=== PATIENT | male | born 1970 | race Caucasian/White ===

== ENCOUNTER 2016-07-01 21:47 | Observation (INO) | payer OTHER ==
[2016-07-02] MEDS ORDERED: ASPIRIN 325 MG TABLET PO ONE (00:29)
--- NOTE | 2016-07-02 00:29 | ER Document Report ---
ED General - General Chief Complaint: Breathing Difficulty Stated Complaint: DIFFICULTY BREATHING Notes: Patient is a 45-year-old male who presents with complaint of sudden onset of aching pain in his left shoulder that occurred with diaphoresis and difficulty breathing. Symptoms lasted approximately 2 hours. He's never had this before. No recent trauma or injuries to shoulder. Pain is not made worse with any type of movement or mobility. No family history of cardiac disease. Patient has no personal history of cardiac disease. He has a history of cervical spine surgery one year ago. He says the pain he had tonight was nothing like anything related to his previous cervical spine pain. He was not doing anything when the pain and shortness of breath came on. TRAVEL OUTSIDE OF THE [place] IN LAST 30 DAYS: No - Related Data Allergies/Adverse Reactions: No Known Allergies Allergy (Verified 08/09/13 18:35) Past Medical History - Social History Smoking Status: Never Smoker Frequency of alcohol use: None Drug Abuse: None Family History: Reviewed & Not Pertinent Patient has suicidal ideation: No Patient has homicidal ideation: No - Past Medical History Cardiac Medical History: Reports: Hx Hypercholesterolemia - controlled with diet Renal/ Medical History: Reports: Hx Kidney Stones. Denies: Hx Peritoneal Dialysis Musculoskeltal Medical History: Reports Hx Arthritis Past Surgical History: Reports: Hx Orthopedic Surgery - 2008 C5 and C6 fusion, 2016 C 5 - C7 fusion - Immunizations Hx Diphtheria, Pertussis, Tetanus Vaccination: No Review of Systems - Review of Systems Notes: My Normal Review Basic REVIEW OF SYSTEMS: CONSTITUTIONAL : Denies fever, chills, or sweats. Denies recent illness. EENT: Denies eye, ear, throat, or mouth pain or symptoms. Denies nasal or sinus congestion. CARDIOVASCULAR: Left shoulder pain RESPIRATORY: Difficulty breathing GASTROINTESTINAL: Denies abdominal pain. Denies nausea, vomiting, or diarrhea. Denies constipation. Last BM: : MUSCULOSKELETAL: Left shoulder pain SKIN: Denies rash or skin lesions. NEUROLOGICAL: Denies altered mental status or loss of consciousness. Denies headache. Denies weakness or paralysis or loss of use of either side. Denies problems with gait or speech. Denies sensory or motor loss. ALL OTHER SYSTEMS REVIEWED AND NEGATIVE. Physical Exam - Notes Notes: General Appearance: Well nourished, alert, cooperative, no acute distress, no obvious discomfort. Well-appearing. Vitals: reviewed, See vital signs table. Head: no swelling or tenderness to the head Eyes: PERRL, EOMI, Conjuctiva clear Mouth: No decreasd moisture Neck: Supple, no neck tenderness, No thyromegaly Lungs: No wheezing, No rales, No rhonci, No accessory muscle use, good air exchange bilaterally. Heart: Normal rate, Regular rythm, No murmur, no rub Abdomen: Normal BS, soft, No rigidity, No abdominal tenderness, No guarding, no rebound, no abdominal masses, no organomegaly Extremities: strength 5/5 in all extremities, good pulses in all extremities, no swelling or tenderness in the extremities, no edema. No reproduction of any pain with plates in his left shoulder through full range of motion. Skin: warm, dry, appropriate color, no rash Neuro: speech clear, oriented x 3, normal affect, responds appropriately to questions. Course - Laboratory Result Diagrams: 07/02/16 00:36 07/02/16 00:36 Laboratory results interpreted by me: 07/02/16 00:36 RDW 15.0 H - EKG Interpretation by Me Additional EKG results interpreted by me: 07/02/16 00:27 EKG is reviewed and interpreted by me. EKG shows normal sinus rhythm with rate of [address] segment elevation or depression. No ischemic T wave inversions. SD level, QRS duration, QTC intervals are within normal range. No old EKG available for comparison. - Transfer of Care Notes: 07/02/16 01:57 Patient's EKG and cardiac enzymes are negative. I am concerned episode he had being that he had severe pain in his left upper chest and shoulder with diaphoresis, sweating, shortness of breath lasted 2 hours ago. I do not have another reason for this other than possible anginal equivalent at this time. I' ve given him aspirin. He's currently free. I spoke with the hospitalist who agrees to admit the patient. Dictation of this chart was performed using voice recognition software; therefore, there may be some unintended grammatical errors. Discharge - Discharge Clinical Impression: Chest pain Qualifiers: Chest pain type: unspecified Qualified Code(s): R07.9 - Chest pain, unspecified Dyspnea Qualifiers: Dyspnea type: unspecified Qualified Code(s): R06.00 - Dyspnea, unspecified Condition: Stable Disposition: ADMITTED OBSERVATION Admitting Provider: Hospitalist Unit Admitted: Telemetry
[2016-07-02 00:57] LABS: ABSOLUTE BASOPHILS # (AUTO) 0.1 10^3/uL (0.0-0.2); ABSOLUTE EOSINOPHILS # (AUTO) 0.3 10^3/uL (0.0-0.6); ABSOLUTE LYMPHOCYTES (AUTO) 2.4 10^3/uL (0.5-4.7); ABSOLUTE MONOCYTES (AUTO) 0.7 10^3/uL (0.1-1.4); ABSOLUTE NEUT (AUTO) 4.3 10^3/uL (1.7-8.2); BASOPHILS % (AUTO) 0.8 % (0-2); EOSINOPHILS % (AUTO) 3.3 % (0-6); HEMATOCRIT 42.2 % (37.9-51.0); HEMOGLOBIN 14.3 g/dL (13.5-17.0); HGB HCT DIFFERENCE 0.7; LYMPHOCYTES % (AUTO) 31.6 % (13-45); MEAN CORPUSCULAR HEMOGLOBIN 31.3 pg (27.0-33.4); MEAN CORPUSCULAR VOLUME 92 fl (80-97); MONOCYTES % (AUTO) 9.1 % (3-13); RED BLOOD COUNT 4.58 10^6/uL (4.35-5.55); SEGMENTED NEUTROPHILS % (AUTO) 55.2 % (42-78); WHITE BLOOD COUNT 7.7 10^3/uL (4.0-10.5)
[2016-07-02 00:58] LABS: ALANINE AMINOTRANSFERASE 32 U/L (21-72); ALBUMIN 4.3 g/dL (3.5-5.0); ALKALINE PHOSPHATASE 99 U/L (38-126); ANION GAP 14 (5-19); ASPARTATE AMINO TRANSFERASE 24 U/L (17-59); BILIRUBIN,DIRECT 0.1 mg/dL (0.0-0.4); BILIRUBIN,TOTAL 0.3 mg/dL (0.2-1.3); BLOOD UREA NITROGEN 12 mg/dL (7-20); CARBON DIOXIDE 25 mmol/L (22-30); CHLORIDE 105 mmol/L (98-107); CREATINE KINASE 170 U/L (55-170); CREATININE RESULT 0.89 mg/dL (0.52-1.25); GLUCOSE 101 mg/dL (75-110); POTASSIUM 4.1 mmol/L (3.6-5.0); SODIUM 143.9 mmol/L (137-145); TOTAL PROTEIN 7.4 g/dL (6.3-8.2)
[2016-07-02 01:13] LABS: CREATINE KINASE MB 0.97 ng/mL (<4.55)
[2016-07-02 01:14] LABS: TROPONIN I < 0.012 ng/mL
[2016-07-02] MEDS ORDERED: NITROGLYCERIN 0.4 MG/TAB 25 TAB/BOTTLE SL PRN (02:19)
[2016-07-02] MEDS ORDERED: HYDRALAZINE HCL INJ/PF 20 MG/1 ML SDV IV PRN (02:20)
[2016-07-02 03:48] VITALS: BP 132/80
[2016-07-02] MEDS ORDERED: BUTALB/ACETAMINOPHEN/CAFFEINE 1 TAB EACH PO PRN (04:14)
--- NOTE | 2016-07-02 04:35 | PDOC H&P ---
History of Present Illness Admission Date/PCP: 07/02/16 02:19 GAUDENCIO STEWART MD Patient complains of: Left shoulder and arm pain History of Present Illness: ASHLI AQUINO is a 45 year old male with a past medical history of rheumatoid arthritis who had been in his usual state of health until approximately 2 hours prior to presentation having an acute and abrupt onset of right shoulder pain which radiated to the arm was dull and steady in nature associated with shortness of breath and diaphoresis. Denying previous episode denying alleviating or exacerbating factors, recent injury or change in medications. His workup is unremarkable he is referred to the hospitalist for observation. Past Medical History Cardiac Medical History: Reports: Hyperlipidema - controlled with diet Musculoskeltal Medical History: Reports: Arthritis, Other - Chronic cervical back pain Psychiatric Medical History: Denies: Depression Past Surgical History Past Surgical History: Reports: Orthopedic Surgery - 2007 C5 and C6 fusion, 2015 C 5 - C7 fusion Social History Information Source: Patient Lives with: Family Smoking Status: Never Smoker Frequency of Alcohol Use: None Hx Recreational Drug Use: No Drugs: None Hx Prescription Drug Abuse: No - Advance Directive Resuscitation Status: Full Code Family History Family History: CVA. denies: CAD, COPD Parental Family History Reviewed: Yes Children Family History Reviewed: Yes Sibling(s) Family History Reviewed.: Yes Medication/Allergy Home Medications: Butalb/Acetaminophen/Caffeine [Njeaiq-Ikjwdzbo-Rooh 50-325-40] 1 tab PO Q4HP PRN 07/02/16 Folic Acid 1 mg PO DAILY 07/02/16 Methotrexate Sodium [Methotrexate] 12.5 mg PO ASDIR PRN 07/02/16 Tizanidine HCl [Zanaflex] 2 mg PO BID 07/02/16 Allergies/Adverse Reactions: No Known Allergies Allergy (Verified 08/09/13 18:35) Review of Systems Constitutional: ABSENT: chills, fever(s), headache(s), weight gain, weight loss Eyes: ABSENT: visual disturbances Ears: ABSENT: hearing changes Cardiovascular: ABSENT: chest pain, dyspnea on exertion, edema, orthropnea, palpitations Respiratory: ABSENT: cough, hemoptysis Gastrointestinal: ABSENT: abdominal pain, constipation, diarrhea, hematemesis, hematochezia, nausea, vomiting Genitourinary: ABSENT: dysuria, hematuria Musculoskeletal: ABSENT: joint swelling Integumentary: ABSENT: rash, wounds Neurological: ABSENT: abnormal gait, abnormal speech, confusion, dizziness, focal weakness, syncope Psychiatric: ABSENT: anxiety, depression, homidical ideation, suicidal ideation Endocrine: ABSENT: cold intolerance, heat intolerance, polydipsia, polyuria Hematologic/Lymphatic: ABSENT: easy bleeding, easy bruising Physical Exam Vital Signs: Temp Pulse Resp BP Pulse Ox 97.5 F 82 18 132/80 H 97 07/02/16 03:23 07/02/16 03:36 07/02/16 03:23 07/02/16 03:23 07/02/16 03:23 Intake & Output 06/30/16 07/01/16 07/02/16 11:59 11:59 11:59 Weight 93 kg General appearance: PRESENT: no acute distress, well-developed, well-nourished Head exam: PRESENT: atraumatic, normocephalic Eye exam: PRESENT: conjunctiva pink, EOMI, PERRLA. ABSENT: scleral icterus Ear exam: PRESENT: normal external ear exam Mouth exam: PRESENT: moist, tongue midline Neck exam: ABSENT: carotid bruit, JVD, lymphadenopathy, thyromegaly Respiratory exam: PRESENT: clear to auscultation vianey. ABSENT: rales, rhonchi, wheezes Cardiovascular exam: PRESENT: RRR. ABSENT: diastolic murmur, rubs, systolic murmur Pulses: PRESENT: normal dorsalis pedis pul Vascular exam: PRESENT: normal capillary refill GI/Abdominal exam: PRESENT: normal bowel sounds, soft. ABSENT: distended, guarding, mass, organolmegaly, rebound, tenderness Rectal exam: PRESENT: deferred Extremities exam: PRESENT: full ROM. ABSENT: calf tenderness, clubbing, pedal edema Musculoskeletal exam: PRESENT: other - Reason reproducible pain to left shoulder external rotation and flexion somewhat consistent with pain prior to presentation Neurological exam: PRESENT: alert, awake, oriented to person, oriented to place , oriented to time, oriented to situation, CN II-XII grossly intact. ABSENT: motor sensory deficit Psychiatric exam: PRESENT: appropriate affect, normal mood. ABSENT: homicidal ideation, suicidal ideation Skin exam: PRESENT: dry, intact, warm, other - Patches of nontender nonpuritic excoriation to the hands bilaterally is chronic and steroid responsive. ABSENT : cyanosis, rash Results Impressions: Chest X-Ray 07/02/16 00:29 IMPRESSION: NO ACUTE RADIOGRAPHIC FINDING IN THE CHEST. Assessment & Plan - Diagnosis (1) Chest pain Qualifiers: Chest pain type: unspecified Qualified Code(s): R07.9 - Chest pain, unspecified Is this a current diagnosis for this admission?: YesPlan: Atypical chest/shoulder pain but also atypical for purely muscle skeletal pain with diaphoresis and shortness of breath. I'll obtain serial cardiac enzymes and treadmill stress test (2) Rotator cuff injury Is this a current diagnosis for this admission?: YesPlan: Symptomatically management outpatient follow-up (3) Rheumatoid arthritis Is this a current diagnosis for this admission?: YesPlan: Unclear control obtain an ESR (4) Dyspnea Qualifiers: Dyspnea type: unspecified Qualified Code(s): R06.00 - Dyspnea, unspecified Is this a current diagnosis for this admission?: YesPlan: Will obtain a BNP is currently asymptomatic on room air satting 100% - Time Time Spent: 30 to 50 Minutes
[2016-07-02] MEDS ORDERED: HEPARIN SOD (PORCINE) 5,000 UNIT/ML 1 ML SYRINGE SUBCUT SCH (06:00)
[2016-07-02] MEDS ORDERED: TIZANIDINE HCL 4 MG TABLET PO PRN (06:45)
[2016-07-02 06:56] LABS: CHOLESTEROL 216.16 mg/dL (0-200); Direct HDL 52 mg/dL (>40); TRIGLYCERIDES 202 mg/dL (<150)
[2016-07-02 07:08] LABS: DIRECT LDL 119 mg/dL (<100)
[2016-07-02 07:09] LABS: CREATINE KINASE MB 0.81 ng/mL (<4.55)
[2016-07-02 07:10] LABS: TROPONIN I < 0.012 ng/mL; VLDL CHOLESTEROL 40.4 mg/dL (10-31)
--- NOTE | 2016-07-02 07:38 | EKG REPORT ---
SEVERITY:- NORMAL ECG - SINUS RHYTHM : Confirmed by: Ike Taylor MD 02-Jul-2016 07:37:38
[2016-07-02] MEDS ORDERED: DOCUSATE SODIUM 100 MG CAPSULE PO SCH (10:00)
[2016-07-02] MEDS ORDERED: FOLIC ACID 1 MG TABLET PO SCH (10:00)
[2016-07-02 13:01] LABS: CREATINE KINASE MB 0.67 ng/mL (<4.55); TROPONIN I < 0.012 ng/mL
--- NOTE | 2016-07-02 14:13 | PDOC DISCHARGE SUMMARY ---
General - Admit/Disc Date/PCP Admission Date/Primary Care Provider: 07/02/16 02:19 GAUDENCIO STEWART MD Discharge Date: 07/02/16 - Discharge Diagnosis (1) Chest pain Is this a current diagnosis for this admission?: Yes (2) Rheumatoid arthritis Is this a current diagnosis for this admission?: Yes (3) Rotator cuff injury Is this a current diagnosis for this admission?: Yes - Additional Information Resuscitation Status: Full Code Discharge Diet: Cardiac Discharge Activity: Activity As Tolerated Home Medications: Aspirin [Aspirin 81 mg Chewable Tablet] 81 mg PO DAILY #30 tab.chew 07/02/16 Butalb/Acetaminophen/Caffeine [Fioricet (50-325-40 mg) Tablet] 1 tab PO Q4HP PRN 07/02/16 Folic Acid [Folvite 1 mg Tablet] 1 mg PO MOTUWETHFRSA 07/02/16 Methotrexate Sodium [Methotrexate] 12.5 mg PO GONZÁLES 07/02/16 Rosuvastatin Calcium [Crestor 20 mg Tablet] 20 mg PO QHS #30 tablet 07/02/16 Tizanidine HCl [Zanaflex 4 mg Tablet] 2 mg PO BID 07/02/16 Tizanidine HCl [Zanaflex 4 mg Tablet] 4 mg PO QHS 07/02/16 History of Present Illness Patient complains of: Left shoulder pain and arm pain History of Present Illness: ASHLI AQUINO is a 45 year old male with a past medical history of rheumatoid arthritis who had been in his usual state of health until approximately 2 hours prior to presentation having an acute and abrupt onset of right shoulder pain which radiated to the arm was dull and steady in nature associated with shortness of breath and diaphoresis. Denying previous episode denying alleviating or exacerbating factors, recent injury or change in medications. His workup is unremarkable he is referred to the hospitalist for observation. Hospital Course Hospital Course: The patient was observed in a continues telemetry unit, serial cardiac enzymes were obtained which were nonsuggestive. The patient's EKG revealed no acute changes and the patient had no events on gambling monitor. Patient had no further replication of symptoms. Patient was noted to have dyslipidemia. The patient stated that he had not been compliant with taking statins in the past. The patient has been able to tolerate crystalline the past and the was resumed on Crestor. Recommended baby aspirin a day. The patient has elected to follow- up with his primary care provider Dr. Adriel Monterroso to arrange for outpatient stress test. Physical Exam Vital Signs: Temp Pulse Resp BP Pulse Ox 97.5 F 65 18 132/80 H 98 07/02/16 03:36 07/02/16 03:36 07/02/16 03:36 07/02/16 03:36 07/02/16 03:36 Intake & Output 06/30/16 07/01/16 07/02/16 23:59 23:59 23:59 Intake Total 0 Balance 0 Weight 93 kg General appearance: PRESENT: no acute distress, cooperative, well-developed, well-nourished Head exam: PRESENT: atraumatic, normocephalic Eye exam: PRESENT: conjunctiva pink, EOMI, PERRLA. ABSENT: scleral icterus Ear exam: PRESENT: normal external ear exam Mouth exam: PRESENT: moist, tongue midline Neck exam: ABSENT: carotid bruit, JVD, lymphadenopathy, thyromegaly Respiratory exam: PRESENT: clear to auscultation vianey, symmetrical, unlabored. ABSENT: rales, rhonchi, tachypnea, wheezes Cardiovascular exam: PRESENT: RRR. ABSENT: diastolic murmur, rubs, systolic murmur Pulses: PRESENT: normal dorsalis pedis pul Vascular exam: PRESENT: normal capillary refill GI/Abdominal exam: PRESENT: normal bowel sounds, soft. ABSENT: distended, guarding, mass, organolmegaly, rebound, tenderness Rectal exam: PRESENT: deferred Extremities exam: PRESENT: full ROM. ABSENT: calf tenderness, clubbing, pedal edema Neurological exam: PRESENT: alert, awake, oriented to person, oriented to place , oriented to time, oriented to situation, CN II-XII grossly intact. ABSENT: motor sensory deficit Psychiatric exam: PRESENT: appropriate affect, normal mood. ABSENT: homicidal ideation, suicidal ideation Skin exam: PRESENT: dry, intact, warm. ABSENT: cyanosis, rash Results Laboratory Results: Labs- Last Values WBC 7.7 10^3/uL (4.0-10.5) 07/02/16 00:36 RBC 4.58 10^6/uL (4.35-5.55) 07/02/16 00:36 Hgb 14.3 g/dL (13.5-17.0) 07/02/16 00:36 Hct 42.2 % (37.9-51.0) 07/02/16 00:36 MCV 92 fl (80-97) 07/02/16 00:36 MCH 31.3 pg (27.0-33.4) 07/02/16 00:36 MCHC 34.0 g/dL (32.0-36.0) 07/02/16 00:36 RDW 15.0 % (11.5-14.0) H 07/02/16 00:36 Plt Count 303 10^3/uL (150-450) 07/02/16 00:36 Seg Neutrophils % 55.2 % (42-78) 07/02/16 00:36 Lymphocytes % 31.6 % (13-45) 07/02/16 00:36 Monocytes % 9.1 % (3-13) 07/02/16 00:36 Eosinophils % 3.3 % (0-6) 07/02/16 00:36 Basophils % 0.8 % (0-2) 07/02/16 00:36 Absolute Neutrophils 4.3 10^3/uL (1.7-8.2) 07/02/16 00:36 Absolute Lymphocytes 2.4 10^3/uL (0.5-4.7) 07/02/16 00:36 Absolute Monocytes 0.7 10^3/uL (0.1-1.4) 07/02/16 00:36 Absolute Eosinophils 0.3 10^3/uL (0.0-0.6) 07/02/16 00:36 Absolute Basophils 0.1 10^3/uL (0.0-0.2) 07/02/16 00:36 ESR 18 mm/hr (0-15) H 07/02/16 00:36 Sodium 143.9 mmol/L (137-145) 07/02/16 00:36 Potassium 4.1 mmol/L (3.6-5.0) 07/02/16 00:36 Chloride 105 mmol/L (98-107) 07/02/16 00:36 Carbon Dioxide 25 mmol/L (22-30) 07/02/16 00:36 Anion Gap 14 (5-19) 07/02/16 00:36 BUN 12 mg/dL (7-20) 04 00:36 Creatinine 0.89 mg/dL (0.52-1.25) 07/02/16 00:36 Est GFR ( Amer) > 60 (>60) 07/02/16 00:36 Est GFR (Non-Af Amer) > 60 (>60) 07/02/16 00:36 Glucose 101 mg/dL (75-110) 07/02/16 00:36 Calcium 9.0 mg/dL (8.4-10.2) 07/02/16 00:36 Total Bilirubin 0.3 mg/dL (0.2-1.3) 07/02/16 00:36 Direct Bilirubin 0.1 mg/dL (0.0-0.4) 07/02/16 00:36 Indirect Bilirubin Not Reportable 07/02/16 00:36 Neonat Total Bilirubin Not Reportable 07/02/16 00:36 AST 24 U/L (17-59) 07/02/16 00:36 ALT 32 U/L (21-72) 07/02/16 00:36 Alkaline Phosphatase 99 U/L (38-126) 07/02/16 00:36 Creatine Kinase 170 U/L (55-170) 07/02/16 00:36 CK-MB (CK-2) 0.67 ng/mL (<4.55) 07/02/16 12:30 Troponin I < 0.012 ng/mL 07/02/16 12:30 Total Protein 7.4 g/dL (6.3-8.2) 07/02/16 00:36 Albumin 4.3 g/dL (3.5-5.0) 07/02/16 00:36 Triglycerides 202 mg/dL (<150) H 07/02/16 06:35 Cholesterol 216.16 mg/dL (0-200) H 07/02/16 06:35 LDL Cholesterol Direct 119 mg/dL (<100) H 07/02/16 06:35 VLDL Cholesterol 40.4 mg/dL (10-31) H 07/02/16 06:35 HDL Cholesterol 52 mg/dL (>40) 07/02/16 06:35 Impressions: Chest X-Ray 07/02/16 00:29 IMPRESSION: NO ACUTE RADIOGRAPHIC FINDING IN THE CHEST. Qualifiers PATEINT BEING DISCHARGED WITH ANY OF THE FOLLOWING DIAGNOSIS?: No Plan Discharge Plan: The patient is to followup with their primary care provider, Dr. Acuna, within one week for hospital followup regarding arrangement of outpatient stress test. Time Spent: Less than 30 Minutes
[2016-07-02] MEDS ORDERED: ATORVASTATIN CALCIUM 20 MG TABLET PO SCH (22:00)
[2016-07-03] MEDS ORDERED: ASPIRIN 81 MG TABLET, CHEWABLE PO SCH (10:00)
== END 2016-07-02 15:00 | disposition home or self-care (01) ==
LOC: ER 21:47 → UNDOADMOB 07-02 02:01 → EH 07-02 02:01 → 4S 07-02 03:34
PROVIDERS: ADMIT Internal Medicine; ATTEND Internal Medicine
DX: R07.89 Other chest pain (principal); M06.9 Rheumatoid arthritis, unspecified; S46.009A Unspecified injury of muscle(s) and tendon(s) of the rotator cuff of unspecified shoulder, initial encounter; X58.XXXA Exposure to other specified factors, initial encounter; E78.5 Hyperlipidemia, unspecified; R06.00 Dyspnea, unspecified; Z79.82 Long term (current) use of aspirin; Z79.899 Other long term (current) drug therapy; Z98.1 Arthrodesis status
CPT/HCPCS: 36415; 71010; 80053; 80061; 82550; 82553; 84484; 85025; 85652; 93005; 93010; 99285; G0378

== ENCOUNTER 2016-07-05 12:09 | Emergency (ER) | payer OTHER ==
[2016-07-05] MEDS ORDERED: ONDANSETRON 4 MG TAB.RAPDIS PO ONE (12:31)
--- NOTE | 2016-07-05 12:33 | ER Document Report ---
ED Medical Screen (RME) - General Chief Complaint: Abdominal Pain Stated Complaint: ABDOMINAL PAIN, FEVER Notes: This 45-year-old male patient with history report arthritis comes emergency room complaining of pain in the left lower quadrant abdomen and left testicle that started yesterday. There is nausea and fever associated with this. He reports the testicle is tender to palpate and the lower abdomen is tender to palpate. His last bowel movement was 2 days ago on 07/03/2016. He took a dose of MiraLAX this morning with no benefit. He was admitted early Tuesday morning for chest pain. He was here for about 10 hours before his discharge. There was no abdominal pain that time. I have greeted and performed a rapid initial assessment of this patient. A comprehensive ED assessment and evaluation of the patient, analysis of test results and completion of the medical decision making process will be conducted by additional ED providers. TRAVEL OUTSIDE OF THE [place] IN LAST 30 DAYS: No - Related Data Allergies/Adverse Reactions: No Known Allergies Allergy (Verified 08/09/13 18:35) Past Medical History - Past Medical History Cardiac Medical History: Reports: Hx Hypercholesterolemia - controlled with diet Renal/ Medical History: Reports: Hx Kidney Stones. Denies: Hx Peritoneal Dialysis Musculoskeltal Medical History: Reports Hx Arthritis Psychiatric Medical History: Denies: Hx Depression Past Surgical History: Reports: Hx Orthopedic Surgery - 2008 C5 and C6 fusion, 2015 C 5 - C7 fusion - Immunizations Hx Diphtheria, Pertussis, Tetanus Vaccination: No Physical Exam - Vital signs Vitals: Temp Pulse Resp BP Pulse Ox 100.3 F 112 H 20 114/74 95 07/05/16 12:14 07/05/16 12:14 07/05/16 12:14 07/05/16 12:14 07/05/16 12:14 Course - Vital Signs Vital signs: Temp Pulse Resp BP Pulse Ox 100.3 F 112 H 20 114/74 95 07/05/16 12:14 07/05/16 12:14 07/05/16 12:14 07/05/16 12:14 07/05/16 12:14
[2016-07-05 13:19] LABS: APPEARANCE,URINE SLIGHTLY-CLOUDY; BILIRUBIN,URINE NEGATIVE (NEGATIVE); GLUCOSE, URINE NEGATIVE (NEGATIVE); KETONES,URINE NEGATIVE (NEGATIVE); LEUKOCYTE ESTERASE,URINE NEGATIVE (NEGATIVE); NITRITE,URINE NEGATIVE (NEGATIVE); PROTEIN,URINE NEGATIVE (NEGATIVE); UROBILINOGEN,URINE NEGATIVE mg/dL (<2.0)
[2016-07-05 13:34] LABS: ABSOLUTE LYMPHOCYTES (AUTO) 1.1 10^3/uL (0.5-4.7); ABSOLUTE MONOCYTES (AUTO) 1.6 10^3/uL (0.1-1.4); ABSOLUTE NEUT (AUTO) 13.3 10^3/uL (1.7-8.2); BASOPHILS % (AUTO) 0.1 % (0-2); EOSINOPHILS % (AUTO) 0.1 % (0-6); HEMATOCRIT 43.1 % (37.9-51.0); HEMOGLOBIN 14.7 g/dL (13.5-17.0); LYMPHOCYTES % (AUTO) 6.8 % (13-45); MEAN CORPUSCULAR HEMOGLOBIN 31.6 pg (27.0-33.4); MEAN CORPUSCULAR VOLUME 93 fl (80-97); MONOCYTES % (AUTO) 9.9 % (3-13); RED BLOOD COUNT 4.64 10^6/uL (4.35-5.55); RED CELL DISTRIBUTION WIDTH 15.4 % (11.5-14.0); SEGMENTED NEUTROPHILS % (AUTO) 83.1 % (42-78)
[2016-07-05 13:38] LABS: ALANINE AMINOTRANSFERASE 34 U/L (21-72); ALBUMIN 4.4 g/dL (3.5-5.0); ALKALINE PHOSPHATASE 102 U/L (38-126); ANION GAP 15 (5-19); ASPARTATE AMINO TRANSFERASE 28 U/L (17-59); BILIRUBIN,DIRECT 0.1 mg/dL (0.0-0.4); BILIRUBIN,TOTAL 0.7 mg/dL (0.2-1.3); BLOOD UREA NITROGEN 11 mg/dL (7-20); CALCIUM 9.3 mg/dL (8.4-10.2); CARBON DIOXIDE 27 mmol/L (22-30); CHLORIDE 98 mmol/L (98-107); CREATININE RESULT 1.09 mg/dL (0.52-1.25); GLUCOSE 116 mg/dL (75-110); TOTAL PROTEIN 7.5 g/dL (6.3-8.2)
[2016-07-05] MEDS ORDERED: NORMAL SALINE 1000 ML 1,000 ML IV ONE (13:44)
[2016-07-05] MEDS ORDERED: CIPROFLOXACIN HCL 500 MG TABLET PO ONE (13:44)
[2016-07-05] MEDS ORDERED: ONDANSETRON HCL INJ/PF 4 MG/2 ML SDV IV ONE ×2 (13:44→14:21)
[2016-07-05] MEDS ORDERED: METRONIDAZOLE 500 MG/NS RTU 100 ML IV ONE (13:44)
[2016-07-05] MEDS ORDERED: MORPHINE SULFATE 10 MG/ML INJ IV ONE (14:21)
--- NOTE | 2016-07-05 15:15 | ER Document Report ---
ED General - General Chief Complaint: Abdominal Pain Stated Complaint: ABDOMINAL PAIN, FEVER TRAVEL OUTSIDE OF THE [place] IN LAST 30 DAYS: No - HPI Patient complains to provider of: left lower quadrant pain Notes: Patient coming in left lower quadrant pain and fevers chills ongoing for approximately 24-48 hours. Patient was recently admitted and evaluated for chest pain here in the hospital. Patient denies history of any bowel pathology. Denies any surgeries to the stomach. Patient states pain left lower quadrant does radiate down to his testicle. No colonoscopies patient states no bowel movement for last 2 days. - Related Data Allergies/Adverse Reactions: No Known Allergies Allergy (Verified 08/09/13 18:35) Past Medical History - Social History Smoking Status: Unknown if Ever Smoked Family History: CVA. denies: CAD, COPD Patient has suicidal ideation: No Patient has homicidal ideation: No - Past Medical History Cardiac Medical History: Reports: Hx Hypercholesterolemia - controlled with diet Renal/ Medical History: Reports: Hx Kidney Stones. Denies: Hx Peritoneal Dialysis Musculoskeltal Medical History: Reports Hx Arthritis Psychiatric Medical History: Denies: Hx Depression Past Surgical History: Reports: Hx Orthopedic Surgery - 2008 C5 and C6 fusion, 2016 C 5 - C7 fusion - Immunizations Hx Diphtheria, Pertussis, Tetanus Vaccination: No Review of Systems - Review of Systems Constitutional: No symptoms reported EENT: No symptoms reported Cardiovascular: No symptoms reported Respiratory: No symptoms reported Gastrointestinal: Abdominal pain, Nausea, Vomiting Genitourinary: No symptoms reported Male Genitourinary: No symptoms reported Musculoskeletal: No symptoms reported Skin: No symptoms reported Hematologic/Lymphatic: No symptoms reported Neurological/Psychological: No symptoms reported -: Yes All other systems reviewed and negative Physical Exam - Vital signs Vitals: Temp Pulse Resp BP Pulse Ox 100.3 F 112 H 20 114/74 95 07/05/16 12:14 07/05/16 12:14 07/05/16 12:14 07/05/16 12:14 07/05/16 12:14 Interpretation: Normal - General General appearance: Appears well, Alert - HEENT Head: Normocephalic, Atraumatic Eyes: Normal Pupils: PERRL - Respiratory Respiratory status: No respiratory distress Chest status: Nontender Breath sounds: Normal Chest palpation: Normal - Cardiovascular Rhythm: Regular Heart sounds: Normal auscultation Murmur: No - Abdominal Inspection: Normal Distension: No distension Bowel sounds: Normal Tenderness: Tender - Moderate tenderness left lower quadrant. No: McBurney's point, Caceres's sign, Guarding, Rebound Organomegaly: No organomegaly - Back Back: Normal, Nontender - Extremities General upper extremity: Normal inspection, Nontender, Normal color, Normal ROM , Normal temperature General lower extremity: Normal inspection, Nontender, Normal color, Normal ROM , Normal temperature, Normal weight bearing. No: Rosy's sign - Neurological Neuro grossly intact: Yes Cognition: Normal Orientation: AAOx4 Petra Coma Scale Eye Opening: Spontaneous [place] Coma Scale Verbal: Oriented Petra Coma Scale Motor: Obeys Commands Petra Coma Scale Total: 15 Speech: Normal Motor strength normal: LUE, RUE, LLE, RLE Sensory: Normal - Psychological Associated symptoms: Normal affect, Normal mood - Skin Skin Temperature: Warm Skin Moisture: Dry Skin Color: Normal Course - Re-evaluation Re-evalutation: 07/05/16 15:55 Patient is a leukocytosis with a CAT scan showing signs of diverticulitis. The read initially showed acute appendicitis however did confirm with the radiologist that patient has diverticulitis. Patient was able tolerate oral medications here. Patient was to be good candidate for outpatient management. Patient will be discharged home patient agrees to plan - Vital Signs Vital signs: Temp Pulse Resp BP Pulse Ox 100.3 F 112 H 20 114/74 95 07/05/16 12:14 07/05/16 12:14 07/05/16 12:14 07/05/16 12:14 07/05/16 12:14 - Laboratory Result Diagrams: 07/05/16 12:40 07/05/16 12:40 Laboratory results interpreted by me: 07/05/16 07/05/16 07/05/16 12:40 12:40 12:45 WBC 16.0 H RDW 15.4 H Seg Neutrophils % 83.1 H Lymphocytes % 6.8 L Absolute Neutrophils 13.3 H Absolute Monocytes 1.6 H Glucose 116 H Urine Blood LARGE H Discharge - Discharge Clinical Impression: Acute diverticulitis Condition: Good Instructions: Low Residue Diet ([facility]), Ciprofloxacin ([facility]), Diverticulitis ([facility]) , Metronidazole ([facility]) Additional Instructions: Follow-up with your primary care physician in 3-5 days. Take medications as prescribed. Turn to the ER symptoms worsen. Please take Tylenol Motrin for pain and fever. If your pain is severe you may take the Vicodin prescribed. Please be aware this may be constipated however recommend taking a stool softener laxative to aid in your bowel movements. Prescriptions: Ciprofloxacin HCl [Cipro 500 mg Tablet] 500 mg PO BID #20 tablet Hydrocodone Bit/Acetaminophen [Hydrocodon-Acetaminophen 5-325] 1 each PO Q6 #30 tablet Metoclopramide HCl [Reglan] 5 mg PO Q6 #30 tablet Metronidazole [Flagyl 500 mg Tablet] 500 mg PO Q6H #40 tablet Sennosides/Docusate Sodium [Senna-S Tablet] 1 each PO BID #30 tablet Forms: Return to Work Referrals: GAUDENCIO STEWART MD [Primary Care Provider] - Follow up in 3-5 days
[2016-07-05] MEDS ORDERED: ACETAMINOPHEN 325 MG TABLET PO ONE (15:40)
[2016-07-05 16:24] VITALS: BP 120/68
== END 2016-07-05 16:07 | disposition home or self-care (01) ==
LOC: ER 12:09
DX: K57.92 Diverticulitis of intestine, part unspecified, without perforation or abscess without bleeding (principal); R10.32 Left lower quadrant pain; R50.9 Fever, unspecified; R11.2 Nausea with vomiting, unspecified; E78.00 Pure hypercholesterolemia, unspecified; Z87.442 Personal history of urinary calculi; Z98.1 Arthrodesis status
CPT/HCPCS: 99284; 96374; 96375; 36415; 87040; 85025; 80053; 81001; 76380; S0119; J2270; J2405; J7030

== ENCOUNTER → 2017-08-03 | Outpatient (CLI) | payer OTHER ==
--- NOTE | 2017-08-03 15:37 | RADIOLOGY REPORT (SQ) ---
EXAM DESCRIPTION: CT CHEST WITH COMPLETED DATE/TIME: 08/03/2017 3:02 pm REASON FOR STUDY: R10.32 LEFT LOWER QUADRANT PAIN R06.02 SHORTNESS OF BREATH R05 COUGH R05 COUGH R0 6.02 SHORTNESS OF BREATH R10.32 LEFT LOWER QUADRANT PAIN COMPARISON: None. TECHNIQUE: CT scan of the chest performed using helical scanning technique with dynamic intravenous contrast injection. Images reviewed with lung, soft tissue and bone windows. Reconstructed coronal and sagittal MPR images reviewed. All images stored on PACS. All CT scanners at this facility use dose modulation, iterative reconstruction, and/or weight based d osing when appropriate to reduce radiation dose to as low as reasonably achievable (ALARA). [facility]: Dose Right [facility]: CareDose [facility]: Dose Right [facility]: Teradose 4D [facility]: [employer] CONTRAST TYPE AND DOSE: 99 mL Isovue 370- low osmolar. RENAL FUNCTION: Creatinine 1.3. RADIATION DOSE: . LIMITATIONS: None. FINDINGS: LUNGS AND PLEURA: No opacities, nodules, masses. No pneumothorax. No effusions. HILAR AND MEDIASTINAL STRUCTURES: No identified masses or abnormal nodes. HEART AND VASCULAR STRUCTURES: No aneurysm or dissection. No central pulmonary emboli. No pericardi al effusion. HARDWARE: None in the chest. UPPER ABDOMEN: See separate report of the CT of the abdomen. THYROID AND OTHER SOFT TISSUES: No masses. No adenopathy. BONES: No significant finding. OTHER: No other significant finding. IMPRESSION: NORMAL CT OF THE CHEST WITH IV CONTRAST. TECHNICAL DOCUMENTATION: JOB ID: [id number] Quality ID # [id number]: Final reports with documentation of one or more dose reduction techniques (e.g., Au tomated exposure control, adjustment of the mA and/or kV according to patient size, use of iterative reconstruction technique) 2010 [employer]- All Rights Reserved Reading location - IP/workstation name: [email or web address]
--- NOTE | 2017-08-03 15:46 | RADIOLOGY REPORT (SQ) ---
EXAM DESCRIPTION: CT ABD/PELVIS WITH IV ORAL COMPLETED DATE/TIME: 08/03/2017 3:02 pm REASON FOR STUDY: R10.32 R05 COUGH R06.02 SHORTNESS OF BREATH R10.32 LEFT LOWER QUADRANT PAIN COMPARISON: 07/05/2016. TECHNIQUE: CT scan of the abdomen and pelvis performed using helical scanning technique with dynamic intravenous contrast injection. No oral contrast. Images reviewed with lung, soft tissue, and bone windows. Reconstructed coronal and sagittal MPR images reviewed. Delayed images for evaluation of the urinary system also acquired. All images stored on PACS. All CT scanners at this facility use dose modulation, iterative reconstruction, and/or weight based d osing when appropriate to reduce radiation dose to as low as reasonably achievable (ALARA). [facility]: Dose Right [facility]: CareDose [facility]: Dose Right [facility]: Teradose 4D [facility]: [employer] CONTRAST TYPE AND DOSE: 99 mL Isovue 370- low osmolar. RENAL FUNCTION: Creatinine 1.3. RADIATION DOSE: CT Rad equipment meets quality standard of care and radiation dose reduction techniq ues were employed. CTDIvol: 13.6 - 17.2 mGy. DLP: 2004 mGy-cm.. LIMITATIONS: None. FINDINGS: LOWER CHEST: No significant findings. No nodules or infiltrates. LIVER: Normal size. There is a large low-attenuation lesion in the posterior right lobe measuring 6 x 11 cm. This demonstrates progressive nodular peripheral enhancement. No dilated ducts. SPLEEN: Normal size. No focal lesions. PANCREAS: No masses. No significant calcifications. No adjacent inflammation or peripancreatic fluid collections. Pancreatic duct not dilated. GALLBLADDER: No identified stones by CT criteria. No inflammatory changes to suggest cholecystitis. ADRENAL GLANDS: No significant masses or asymmetry. RIGHT KIDNEY AND URETER: No solid masses. No significant calcifications. No hydronephrosis or hyd roureter. LEFT KIDNEY AND URETER: No solid masses. No significant calcifications. No hydronephrosis or hydr oureter. AORTA AND VESSELS: No aneurysm. No dissection. Renal arteries, SMA, celiac without stenosis. RETROPERITONEUM: No retroperitoneal adenopathy, hemorrhage or masses. BOWEL AND PERITONEAL CAVITY: No masses or inflammatory changes. No free fluid or peritoneal masses. APPENDIX: Normal. PELVIS: No mass. No free fluid. Normal bladder. ABDOMINAL WALL: No masses. No hernias. BONES: No significant or acute findings. OTHER: No other significant finding. IMPRESSION: 1. LARGE 6 X 11 CM LESION IN THE RIGHT LOBE OF THE LIVER WHICH HAS IMAGING CHARACTERISTICS MOST SUGGE STIVE OF A GIANT HEMANGIOMA. 2. NO OTHER SIGNIFICANT OR ACUTE FINDING IN THE ABDOMEN OR PELVIS ON CT SCAN WITH IV CONTRAST. TECHNICAL DOCUMENTATION: JOB ID: [id number] Quality ID # [id number]: Final reports with documentation of one or more dose reduction techniques (e.g., Au tomated exposure control, adjustment of the mA and/or kV according to patient size, use of iterative reconstruction technique) 2010 [employer]- All Rights Reserved Reading location - IP/workstation name: [email or web address]
== END ==
LOC: RAD 14:36
PROVIDERS: ATTEND Family Medicine
DX: R10.32 Left lower quadrant pain (principal); R05 Cough; R06.02 Shortness of breath; K76.9 Liver disease, unspecified
CPT/HCPCS: 71260; 74177; 82565